=== PATIENT | female | born 1985 | race Caucasian/White ===

== ENCOUNTER 2018-08-10 15:40 | Emergency (ER) | payer SELFPAY ==
[~2018-08-10] VITALS: Ht 160 cm; Wt 68.0 kg
[2018-08-10 16:03] VITALS: BP 107/70
[2018-08-10] MEDS ORDERED: ACETAMINOPHEN 650 mg PER 20 mL UD PO ONE (16:30)
== END 2018-08-10 17:29 | disposition home or self-care (01) ==
LOC: ER 16:13
DX: R51 Headache (principal); V43.52XA Car driver injured in collision with other type car in traffic accident, initial encounter; Y93.89 Activity, other specified; Y99.8 Other external cause status; Y92.410 Unspecified street and highway as the place of occurrence of the external cause